=== PATIENT | female | born 1935 | race Caucasian/White ===

== ENCOUNTER → 2016-10-29 | Outpatient (CLI) | payer OTHER | LOC: BHLMT 11:30 | PROVIDERS: ATTEND Internal Medicine Cardiovascular Disease | DX: R42 Dizziness and giddiness (principal); R55 Syncope and collapse | CPT/HCPCS: 93225-PO; 93226-PO ==

== ENCOUNTER → 2017-01-20 | Outpatient (CLI) | payer OTHER | LOC: FIMAGING 09:29 | PROVIDERS: ATTEND Family Medicine | DX: Z13.820 Encounter for screening for osteoporosis (principal); M85.80 Other specified disorders of bone density and structure, unspecified site ==

== ENCOUNTER 2017-03-28 06:25 | Inpatient (IN) | payer OTHER ==
[~2017-03-28 06:25] MED LIST: ACETAMINOPHEN 325 MG TAB PO ONE; DEXAMETHASONE 4 MG/ML VIAL IVP ONE; FAMOTIDINE 20 MG TAB PO ONE; ROPIVACAINE 0.2% 80 MG, EPINEPHrine 0.2 MG, KETOROLAC TROMETHAMINE 30 MG in BAG 0 ML IU ONE; TRANEXAMIC ACID 3,000 MG in NS 50 ML IRR ONE; ceFAZolin 2 GM/DEXTROSE 100 ML IV ONE
[2017-03-28] MEDS ORDERED: VANCOMYCIN 1 GM VIAL ONE (06:51)
[2017-03-28] MEDS ORDERED: TRANEXAMIC ACID 3,000 MG/50 ML BAG IRR ONE (06:51)
--- NOTE | 2017-03-28 07:03 | PDHPUP ---
History & Physical Update H&P update statement: This history and physical update is based on an assessment of the patient which was completed after admission or registration (within 24 hours), but prior to the surgery/procedure. H&P update: H&P reviewed & patient examined, no change in patient's condition since H&P completed
--- NOTE | 2017-03-28 07:22 | PDANEPAE ---
ANE History of Present Illness 82 yo F w OA here for R TKA ANE Past Medical History - Cardiovascular History Hx Hypertension: No Hx Arrhythmias: No Hx Chest Pain: No Hx Coronary Artery / Peripheral Vascular Disease: No Hx CHF / Valvular Disease: No Hx Palpitations: No Cardiovascular History Comment: OCCASIONAL LOW BP - Pulmonary History Hx COPD: No Hx Asthma/Reactive Airway Disease: No Hx Recent Upper Respiratory Infection: No Hx Oxygen in Use at Home: No Hx Sleep Apnea: No Sleep Apnea Screening Result - Last Documented: Negative Pulmonary History Comment: CURRENT BRONCHITIS SINCE 09/29/13 - Neurologic History Hx Cerebrovascular Accident: No Hx Seizures: No Hx Dementia: No Neurologic History Comment: 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 SLIGHT SPINAL STENOSIS. 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 THYROID CA - Congenital Disorder History Hx Congenital Disorders: No - GI History Hx Gastrointestinal Disorders: No - Other Health History Other Health History: none - Chronic Pain History Chronic Pain: Yes (R KNEE AND HIP) - Surgical History Prior Surgeries: ARELY RTC. THYROIDECTOMY. lymph node bx with cedric 07/23/12. TONSILECTOMY CHILD. PARTIAL HYSTERECTOMY AT 37 YEARS OLD. SEVERAL BASAL AND SQUAMOUS CELL REMOVAL'S ON. FACE AND HEAD. BROKEN LEFT BIG TOE SURGERY 2008. PARATHYROID AND TUMOR REMOVAL 01/2001. LEFT SUBCLAVICULAR LYMPH NODE BX 06/2012 ANE Review of Systems - Exercise capacity METS (RN): 4 METS ANE Patient History - Allergies Allergies/Adverse Reactions: Penicillins Allergy (Intermediate, Verified 07/18/16 11:55) hives and rash LOBSTER Allergy (Severe, Uncoded 01/10/12 20:15) Vomiting HAYFEVER Allergy (Mild, Uncoded 12/28/13 12:31) ITCHY EYES,SNEEZING - Home Medications Home medications: home medication list seen and reviewed Home Medications: Levothyroxine [Synthroid 112 mcg (RX)] 112 mcg PO DAILY 07/21/12 [Last Taken 11/14 08:00] Estradiol [Estrace Vaginal (*)] 1 mirna VG WE@21 07/18/16 [Last Taken 07/31/16 21: 30] Herbals/Supplements -Info Only 1 ea PO DAILY 07/18/16 [Last Taken 07/24/16] Acetamn/Diphenhydramine 500/25 [Tylenol PM (*)] 1 each PO HS PRN 03/12/17 [Last Taken Unknown] Atenolol [Tenormin 25 mg (*)] 25 mg PO DAILY 03/12/17 [Last Taken 03/28/17 05:30 ] Cholecalciferol Vit D3 [Vitamin D3 2000 units tab (OTC)] 2,000 units PO MWF [Last Taken Unknown] Glucosamine/Chondroitin [Glucosamine/Chondroitin (*)] 1 each PO DAILY 03/12/17 [ Last Taken Unknown] - NPO status NPO Status: no food or drink >8 hours - Anes Hx Anes Hx: post operative nausea and vomiting - Smoking Hx Smoking Status: Never smoked - Alcohol Use Alcohol Use: None - Family Anes Hx Family Anes Hx: none Family Hx Anesthesia Complications: none ANE Labs/Vital Signs - Vital Signs Height: 166.37 cm Weight: 64.864 kg ANE Physical Exam - Airway Neck exam: FROM Mallampati Score: Class 2 Mouth exam: normal dental/mouth exam - Pulmonary Pulmonary: no respiratory distress, clear to auscultation - Cardiovascular Cardiovascular: regular rate and rhythym, no murmur, rub, or gallop - ASA Status ASA Status: II ANE Anesthesia Plan Anesthesia Plan: MAC, spinal
[2017-03-28] MEDS ORDERED: LIDOCAINE 1% 2 ML INJ ID PRN (07:36)
[2017-03-28] MEDS ORDERED: LR 1,000 ML IV ONE (07:36)
[2017-03-28] MEDS ORDERED: PROPOFOL/EMULSION 500 MG/50 ML BOTTLE IV ONE (07:49)
[2017-03-28 07:58] LABS: ANION GAP 9 mEq/L (8-16); CALCIUM 9.1 mg/dL (8.5-10.4); CARBON DIOXIDE 21 mEq/l (22-31); CHLORIDE 102 mEq/L (97-110); CREATININE 0.9 mg/dL (0.6-1.0); GLOMERULAR FILTRATION RATE 60; GLUCOSE 87 mg/dL (70-100); POTASSIUM 4.1 mEq/L (3.5-5.2); SODIUM 132 mEq/L (134-144)
[2017-03-28] MEDS ORDERED: clonIDINE 1 MG/10 ML VIAL EP ONE (08:57)
[2017-03-28] MEDS ORDERED: ROPIVACAINE HCL 150 MG/30 ML INJ ONE (08:57)
[2017-03-28] MEDS ORDERED: NALOXONE HCL 0.4 MG/ML INJ IVP PRN (09:03)
[2017-03-28] MEDS ORDERED: ACETAMINOPHEN 500 MG TAB PO PRN (09:03)
[2017-03-28] MEDS ORDERED: OXYCODONE/APAP 5/325 TAB PO PRN (09:03)
[2017-03-28] MEDS ORDERED: HYDROmorphONE/DILAUDID 1 MG/ML SYR IVP PRN (09:03)
[2017-03-28] MEDS ORDERED: fentaNYL 100 MCG/2 ML INJ IVP PRN (09:03)
[2017-03-28] MEDS ORDERED: ONDANSETRON 4 MG/2 ML VIAL IVP PRN ×2 (09:03→09:36)
--- NOTE | 2017-03-28 09:35 | POSTOPPROG ---
Post Op Note Date of Operation: 03/28/17 Surgeon: Althea Briseno Ship Propeller Finisher: gavino briseno Anesthesiologist: dr. reid Anesthesia: Spinal, Other (Specify) (adductor canal block) Pre-op Diagnosis: left knee AO Post-op Diagnosis: same Indication: left knee pain due to OA that failed conservative measures Procedure: L TKA Findings: severe knee OA Inf/Abcess present in the surg proc area at time of surgery?: No EBL: 50-100
[2017-03-28] MEDS ORDERED: MAGNESIUM HYDROXIDE 30 ML UDCUP PO PRN (09:36)
[2017-03-28] MEDS ORDERED: oxyCODONE IR 5 MG TAB PO PRN (09:36)
[2017-03-28] MEDS ORDERED: BISACODYL 10 MG SUPP PR PRN (09:36)
[2017-03-28] MEDS ORDERED: LACTULOSE 20 GM/30 ML UDCUP PO PRN (09:36)
[2017-03-28] MEDS ORDERED: CYCLOBENZAPRINE 10 MG TAB PO PRN (09:36)
[2017-03-28] MEDS ORDERED: METOCLOPRAMIDE 10 MG/2 ML VIAL IVP PRN (09:36)
[2017-03-28] MEDS ORDERED: TEMAZEPAM 15 MG CAP PO PRN (09:36)
[2017-03-28] MEDS ORDERED: diphenhydrAMINE 25 MG CAP PO PRN (09:36)
[2017-03-28] MEDS ORDERED: PROMETHAZINE HCL 25 MG SUPPR PR PRN (09:36)
[2017-03-28] MEDS ORDERED: ONDANSETRON DISINTEGRATING 4 MG TAB PO PRN (09:36)
[2017-03-28] MEDS ORDERED: DIPHENOXYLATE/ATROPINE LOMOTIL 1 TAB PO PRN (09:36)
[2017-03-28] MEDS ORDERED: PHARMACY PAIN CONSULT 1 EA MISC PRN (09:36)
[2017-03-28] MEDS ORDERED: PROMETHAZINE HCL 25 MG/ML INJ IVP PRN (09:36)
[2017-03-28] MEDS ORDERED: POLYETHYLENE GLYCOL 3350 17 GM PKT PO PRN (09:36)
[2017-03-28] MEDS ORDERED: NS 1,000 ML IV SCH (09:45)
[2017-03-28] MEDS ORDERED: oxyCODONE IR 5 MG TAB ONE (10:19)
[2017-03-28] MEDS: ACETAMINOPHEN 325 MG TAB PO SCH ×2 (11:53→18:13)
[2017-03-28] MEDS: ceFAZolin 2 GM/DEXTROSE 100 ML IV SCH ×2 (14:47→22:15)
--- NOTE | 2017-03-28 15:07 | POSTANESTH ---
Post Anesthetic Evaluation Cardiovascular Status: Normal, Stable, Similar to Pre-Op Cond Respiratory Status: Normal, Stable, Similar to Pre-op Cond. Level of Consciousness/Mental Status: Can Participate in Eval, Alert and Oriented Pain Control: Adequate, Prn Tx Ordered Nausea/Vomiting Control: Adequate, Prn Tx Ordered Complications Possibly Related to Anesthesia: None Noted
[2017-03-28] MEDS: ASPIRIN 325 MG TAB PO SCH (20:28)
[2017-03-28] MEDS: SENNOSIDES/DOCUSATE SODIUM TAB PO SCH (20:28)
[2017-03-28] MEDS: FAMOTIDINE 20 MG TAB PO SCH (20:28)
[2017-03-29] MEDS: ACETAMINOPHEN 325 MG TAB PO SCH ×2 (01:45→05:02)
[2017-03-29 05:18] LABS: HEMOGLOBIN 12.8 g/dL (12.6-16.3)
[2017-03-29 05:32] LABS: ANION GAP 9 mEq/L (8-16); CALCIUM 8.9 mg/dL (8.5-10.4); CARBON DIOXIDE 19 mEq/l (22-31); CHLORIDE 107 mEq/L (97-110); CREATININE 0.8 mg/dL (0.6-1.0); GLOMERULAR FILTRATION RATE > 60; GLUCOSE 88 mg/dL (70-100); POTASSIUM 4.1 mEq/L (3.5-5.2); SODIUM 135 mEq/L (134-144)
[2017-03-29 07:45] VITALS: BP 157/86; PULSE 51; RESP 16; TEMP 96.2
[2017-03-29] MEDS: ASPIRIN 325 MG TAB PO SCH (08:40)
[2017-03-29] MEDS: FAMOTIDINE 20 MG TAB PO SCH (08:41)
[2017-03-29] MEDS: SENNOSIDES/DOCUSATE SODIUM TAB PO SCH (08:42)
[2017-03-29] MEDS ORDERED: ATENOLOL 25 MG TAB PO SCH (09:00)
[2017-03-29] MEDS ORDERED: LEVOTHYROXINE 112 MCG TAB PO SCH (09:00)
[2017-03-29 09:11] VITALS: O2SAT 93
--- NOTE | 2017-03-29 09:57 | SOAPPROG ---
[facility] Progress Note Assessment/Plan: Assessment: gladys is doing well POD 1 s/p R TKA 1) pain management: pain is well controlled on oral pain meds 2) VTE ppx: recommend aspirin daily and DENNIS hose 3) d/c planning: d/c to home pending release from PT today 4) postop urinary retention: straight cath'd yesterday, resolved today Plan: 03/29/17 09:56 Subjective: Gladys is doing well today, denies SOB, chest pain and N/V. Objective: Vital Signs Temp Pulse Resp BP Pulse Ox 35.7 C L 51 L 16 157/86 H 93 03/29/17 07:42 03/29/17 07:42 03/29/17 07:42 03/29/17 07:42 03/29/17 07:50 Laboratory Results 03/29/17 05:00 03/29/17 05:00 03/28/17 03/29/17 03/30/17 05:59 05:59 05:59 Intake Total 2450 400 Output Total 3100 600 Balance -650 -200 RLE; incision dressing is clean and dry, NVI, +pf/df ICD10 Worksheet Patient Problems: Problems Problem Status Onset Primary localized osteoarthritis of right knee Acute
--- NOTE | 2017-04-03 09:03 | GDS ---
[f rep st] DISCHARGE SUMMARY ADMISSION DIAGNOSIS: Right knee osteoarthritis. DISCHARGE DIAGNOSIS: Right knee osteoarthritis. PROCEDURE: Right total knee arthroplasty. VTE PROPHYLAXIS: Aspirin: Recommend 3 weeks daily. BRIEF DESCRIPTION OF HOSPITAL STAY: Patient was admitted for an elective joint arthroplasty. The p atient tolerated the procedure well and has passed physical therapy. The patient was given appropri ate antibiotic prophylaxis and venous thromboembolism prophylaxis. The patient's pain was well cont rolled on oral pain medication, patient was holding down food, and had urinated. Decision was made to discharge the patient. The patient was given post-operative prescriptions pre-operatively. PLAN: To follow up as scheduled April 17 at 1:30 p.m. /[id number]/MODL
--- NOTE | 2017-04-03 15:44 | GOP ---
[f rep st] OPERATIVE REPORT DATE OF OPERATION: 03/28/2017 SURGEON: Juice Cr MD LANGUAGE SPECIALIST: Mala Cr PA-C ANESTHESIA: Spinal. PREOPERATIVE DIAGNOSIS: Right knee osteoarthritis. POSTOPERATIVE DIAGNOSIS: Right knee osteoarthritis. PROCEDURE PERFORMED: Right total knee replacement. FINDINGS/PATHOLOGY: Severe patellofemoral osteoarthritis. ESTIMATED BLOOD LOSS: 30 cc. INDICATIONS: This is an 82-year-old female with severe and progressive pain and deformity of the right knee unresponsive to conservative care. Risks and benefits of the surgical intervention were explained in detail. DESCRIPTION OF PROCEDURE: The patient was brought to the operative room and placed on the table in the supine position. Spinal anesthesia was induced without difficulty. A pneumatic tourniquet was applied about the right proximal thigh, and the leg was prepped and draped in a sterile fashion. The leg geronimo was applied. After exsanguination by elevation the tourniquet was inflated to 250 mm of mercury. Incision was made anterior medial from the tibial tuberosity to a point 2 cm proximal to the superior pole of the patella. Medial parapatellar arthrotomy was carried out from the superior pole of the patella and posteriorly in line with the fibers of the Type 2 VMO. The medial collateral ligament was elevated and the infrapatellar fat pad was resected. The patella was everted and the articular surface was excised. A 35 mm patellar button was placed. The distal femoral guide hole was drilled and the 6 degree alignment armando was placed. A 10 mm distal femoral cut was made without difficulty. Attention was turned to the tibia and a standard 9 mm cut based on the lateral tibial condyle was performed. The tibial articular surface was excised without difficulty. Attention was turned back to the femur and a size 5 Triathlon femoral cutting block was positioned. Anterior, posterior, and chamfer cuts were made, followed by the intercondylar box cut. The knee was extended and the remnants of the medial and lateral meniscus were excised. The posterior capsule was injected with ropivacaine, epinephrine and Toradol. A size 4 MIS mini-keel tibial tray was positioned. Trial reduction was then carried out. There was excellent range of motion, alignment, and stability using the 9 mm polyethylene. All trials were then removed. The joint was thoroughly irrigated and carefully dried. Two packages of cement and 2 grams of vancomycin were mixed in the vacuum mixer and placed on the fixation surfaces of all surfaces of the components. The components were implanted and all excess cement was thoroughly removed. The permanent 9 mm polyethylene was placed without difficulty. The tourniquet was deflated and all bleeders were coagulated. The wound was thoroughly irrigated and closed using interrupted sutures of 2-0 Vicryl for the joint capsule. The subcu was closed with 3-0 Vicryl and the skin with 4-0 Monocryl. Dermabond and Steri-Strips were applied followed by a compressive dressing. The patient was then moved from the operating room to the recovery room in good condition, having tolerated the procedure well. /[id number]/MODL MTDD
== END 2017-03-29 12:57 | disposition home or self-care (01) | DRG 470 ==
LOC: F3N 06:25
PROVIDERS: ADMIT Orthopaedic Surgery; ATTEND Orthopaedic Surgery
PROC: 0SRC0J9 Replacement of Right Knee Joint with Synthetic Substitute, Cemented, Open Approach (ICD-10-PCS; principal; 2017-03-28 08:15)
DX: M17.11 Unilateral primary osteoarthritis, right knee (principal); R33.9 Retention of urine, unspecified; E03.9 Hypothyroidism, unspecified
CPT/HCPCS: 97116-GP; 97161-GP; 97165-GO; 97530-GP; C1713; G8978-GP-CL; G8979-GP-CI; G8980-GP-CI; G8987-GO-CI; G8988-GO-CI; G8989-GO-CI; J0171; J0690; J0735; J1100; J1885; J2704; J2795; J3370

== ENCOUNTER → 2018-01-19 | Outpatient (CLI) | payer OTHER | LOC: FIMAGING 14:31 | PROVIDERS: ATTEND Internal Medicine | DX: Z12.31 Encounter for screening mammogram for malignant neoplasm of breast (principal) ==

== ENCOUNTER → 2018-06-10 | Outpatient (CLI) | payer OTHER | LOC: BHFA 14:00 | PROVIDERS: ATTEND Internal Medicine Cardiovascular Disease | DX: R55 Syncope and collapse (principal) ==

== ENCOUNTER → 2018-10-05 | Outpatient (CLI) | payer OTHER | LOC: BHLMT 11:45 | PROVIDERS: ATTEND Nurse Practitioner Family | DX: R55 Syncope and collapse (principal); R00.2 Palpitations | CPT/HCPCS: 93005-PO ==

== ENCOUNTER → 2018-10-14 | Day surgery (SDC) | payer OTHER ==
[~2018-10-14] MED LIST changes: -ACETAMINOPHEN 325 MG TAB PO ONE; -DEXAMETHASONE 4 MG/ML VIAL IVP ONE; -FAMOTIDINE 20 MG TAB PO ONE; +LIDOCAINE 1% 300 MG/30 ML SDV SC ONE; -ROPIVACAINE 0.2% 80 MG, EPINEPHrine 0.2 MG, KETOROLAC TROMETHAMINE 30 MG in BAG 0 ML IU ONE; -TRANEXAMIC ACID 3,000 MG in NS 50 ML IRR ONE; -ceFAZolin 2 GM/DEXTROSE 100 ML IV ONE
--- NOTE | 2018-10-14 12:47 | CPIP ---
DATE OF PROCEDURE: 10/14/2018 INDICATION: The patient is a pleasant 83-year-old female with a history of syncope. Previous noninv asive monitoring with outpatient telemetry has been unrevealing. PROCEDURE: Implantation of a [employer] Confirm. TECHNIQUE: Following informed consent, in the fasting state, the patient was brought to the CVC. Th e 3rd intercostal space was identified by landmarks. The patient was prepped and draped in usual iván rile fashion. The skin overlying the 3rd intercostal space to the left of the sternum was infiltrate d with lidocaine. A 1 cm incision was made and the [employer] Confirm was "injected" beneath the skin. The wound was then closed with 2 joe and manual pressure was held. COMPLICATIONS: None DEVICE INFORMATION: The device is a [employer] Medical Confirm RX, reference number [id number], serial num jose [id number]. DISPOSITION: The patient will be recovered here in the CVC and discharged home today. /[id number]/MODL
== END | disposition home or self-care (01) ==
LOC: FCATH 08:12
PROVIDERS: ATTEND Internal Medicine Cardiovascular Disease
PROC: 0JH602Z Insertion of Monitoring Device into Chest Subcutaneous Tissue and Fascia, Open Approach (ICD-10-PCS; principal; 2018-10-14)
DX: R55 Syncope and collapse (principal)
CPT/HCPCS: C1764

== ENCOUNTER → 2019-03-04 | Outpatient (CLI) | payer OTHER | LOC: FIMAGING 14:04 ==